=== PATIENT | female | born 1990 | race American Indian/Alaskan Native ===

== ENCOUNTER 2020-08-10 15:08 | Emergency (ER) | payer SELFPAY ==
[2020-08-10] MEDS ORDERED: dexAMETHasone 20 MG/5 ML VIAL IM ONE (15:54)
[2020-08-10] MEDS ORDERED: IPRATROPIUM/ALBUTEROL SULFATE 3 ML AMPUL.NEB IH ONE (15:54)
--- NOTE | 2020-08-10 16:00 | Emergency Department Report ---
ED Shortness of Breath HPI - General Chief Complaint: Dyspnea/Respdistress Stated Complaint: DIFFICULTY BREATHING Time Seen by Provider: 08/10/20 15:33 Source: patient Mode of arrival: Ambulatory Limitations: No Limitations - History of Present Illness Initial Comments: Patient is a 30-year-old female presents emergency room with complaints of an asthma exacerbation that began yesterday. Patient states that she has a cough with mucus production, shortness of breath wheezing patient states that she is visiting from [place]. She states that she ran out of her albuterol inhaler. She states that she has been out approximately 3 days. She denies any fever, nausea, vomiting, diarrhea, chest pain. She states that she also has a past medical history of congestive heart and reports that she is out of her Lasix. She denies any medication allergies. she denies tobacco use. - Related Data Previous Rx's Medication Instructions Recorded Last Taken Type Albuterol Sulfate [Proventil Hfa] 1 - 2 puff IH TID PRN #1 hfa.aer.ad 08/10/20 Unknown Rx Fluticasone/Salmeterol [Advair 1 puff IH BID #1 disk.w.dev 08/10/20 Unknown Rx Diskus 100-50 mcg] Furosemide [Lasix] 40 mg PO BID #60 tablet 08/10/20 Unknown Rx Montelukast [Singulair] 10 mg PO QPM #30 tablet 08/10/20 Unknown Rx Allergies Allergy/AdvReac Type Severity Reaction Status Date / Time clarithromycin [From Biaxin] Allergy Hives Verified 08/10/20 15:21 ED Review of Systems ROS: Stated complaint: DIFFICULTY BREATHING Other details as noted in HPI Comment: All other systems reviewed and negative ED Past Medical Hx - Past Medical History Previous Medical History?: Yes Hx Congestive Heart Failure: Yes Hx Asthma: Yes - Surgical History Past Surgical History?: Yes Additional Surgical History: TL, 2 , GB - Medications Home Medications: Home Medications Medication Instructions Recorded Confirmed Last Taken Type Albuterol Sulfate [Proventil Hfa] 1 - 2 puff IH TID PRN #1 hfa.aer.ad 08/10/20 Unknown Rx Fluticasone/Salmeterol [Advair 1 puff IH BID #1 disk.w.dev 08/10/20 Unknown Rx Diskus 100-50 mcg] Furosemide [Lasix] 40 mg PO BID #60 tablet 08/10/20 Unknown Rx Montelukast [Singulair] 10 mg PO QPM #30 tablet 08/10/20 Unknown Rx ED Physical Exam - General Limitations: No Limitations General appearance: alert, in no apparent distress - Head Head exam: Present: atraumatic, normocephalic - Eye Eye exam: Present: normal appearance - ENT ENT exam: Present: mucous membranes moist - Respiratory Respiratory exam: Present: wheezes, decreased breath sounds. Absent: respiratory distress, rhonchi, stridor, chest wall tenderness, accessory muscle use - Cardiovascular Cardiovascular Exam: Present: regular rate, normal rhythm, normal heart sounds. Absent: systolic murmur, diastolic murmur, rubs, gallop - Extremities Exam Extremities exam: Present: pedal edema (bilaterally, no calf ttp) - Neurological Exam Neurological exam: Present: alert, oriented X3 - Psychiatric Psychiatric exam: Present: normal affect, normal mood - Skin Skin exam: Present: warm, dry, intact ED Course Vital Signs 08/10/20 08/10/20 08/10/20 16:35 16:38 17:18 Temperature 98.5 F Pulse Rate 90 90 Pulse Rate [ 90 Anterior Bilateral Throughout] Respiratory 20 16 Rate Respiratory 18 Rate [Anterior Bilateral Throughout] Blood Pressure 150/95 162/91 [Right] O2 Sat by Pulse 99 97 Oximetry ED Medical Decision Making - Lab Data Vital Signs 08/10/20 08/10/20 08/10/20 16:35 16:38 17:18 Temperature 98.5 F Pulse Rate 90 90 Pulse Rate [ 90 Anterior Bilateral Throughout] Respiratory 20 16 Rate Respiratory 18 Rate [Anterior Bilateral Throughout] Blood Pressure 150/95 162/91 [Right] O2 Sat by Pulse 99 97 Oximetry - Radiology Data Radiology results: report reviewed Ordering Physician: FIDE GARCIA Date of Service: 08/10/20 Procedure(s): XR chest routine 2V Accession Number(s): [id number] cc: FIDE GARCIA Fluoro Time In Minutes: CHEST 2 VIEWS INDICATION: cough, SOB, hx of asthma and CHF. COMPARISON: None FINDINGS: Support devices: None. Heart: Within normal limits. Lungs/pleura: There is poor inspiration. No acute air space or interstitial disease. No pneumothorax. Additional findings: None. IMPRESSION: No acute findings. Signer Name: Corbin Mendosa Jr, MD Signed: 08/10/2020 4:23 PM Workstation Name: [id number] Transcribed By: TTR Dictated By: CORBIN MENDOSA JR, MD Electronically Authenticated By: CORBIN MENDOSA JR, MD Signed Date/Time: 08/10/201622 DD/ 22 TD/TT: Print Cancel - Medical Decision Making Patient is a 30-year-old female presents emergency room with complaints of an as thma exacerbation that began yesterday. Patient states that she has a cough with mucus production, shortness of breath wheezing patient states that she is visiting from [place]. She states that she ran out of her albuterol inhaler. She states that she has been out approximately 3 days. She denies any fever, nausea, vomiting, diarrhea, chest pain. She states that she also has a past medical history of congestive heart and reports that she is out of her Lasix. She denies any medication allergies. she denies tobacco use. Vitals are stable. Chest x-ray No acute findings. Patient given DuoNeb and steroids IM and wheezing has resolved and she feels much better ready to go home. Patient given refill of her home medications. Advised patient Please take medication as prescribed. Follow-up with your primary care doctor. Return to emergency room immediately for any new or worsening symptoms. Critical care attestation.: If time is entered above; I have spent that time in minutes in the direct care of this critically ill patient, excluding procedure time. ED Disposition Clinical Impression: Medication refill Asthma exacerbation Qualifiers: Asthma severity: unspecified severity Asthma persistence: unspecified Qualified Code(s): J45.901 - Unspecified asthma with (acute) exacerbation Disposition: DC-01 TO HOME OR SELFCARE Is pt being admited?: No Does the pt Need Aspirin: No Condition: Stable Instructions: Asthma, Adult Additional Instructions: Please take medication as prescribed. Follow-up with your primary care doctor. Return to emergency room immediately for any new or worsening symptoms. Prescriptions: Fluticasone/Salmeterol [Advair Diskus 100-50 mcg] 1 puff IH BID #1 disk.w.dev Furosemide [Lasix] 40 mg PO BID #60 tablet Albuterol Sulfate [Proventil Hfa] 1 - 2 puff IH TID PRN #1 hfa.aer.ad PRN Reason: shortness of breath/wheezing Montelukast [Singulair] 10 mg PO QPM #30 tablet Referrals: NIMO DE OLIVEIRA MD [Staff Physician] - 3-5 Days [facility] [Provider Group] - 3-5 Days Time of Disposition: 17:09 Print Language: TELUGU
--- NOTE | 2020-08-10 16:28 | XRay Report ---
CHEST 2 VIEWS INDICATION: cough, SOB, hx of asthma and CHF. COMPARISON: None FINDINGS: Support devices: None. Heart: Within normal limits. Lungs/pleura: There is poor inspiration. No acute air space or interstitial disease. No pneumothorax . Additional findings: None. IMPRESSION: No acute findings. Signer Name: Corbin Mendosa Jr, MD Signed: 08/10/2020 4:23 PM Workstation Name: [id number]
[2020-08-10 17:19] VITALS: BP 162/91
== END 2020-08-10 18:30 | disposition home or self-care (01) ==
LOC: ED 15:08
DX: J45.901 Unspecified asthma with (acute) exacerbation (principal); Z76.0 Encounter for issue of repeat prescription; I50.9 Heart failure, unspecified; Z98.890 Other specified postprocedural states; Z79.899 Other long term (current) drug therapy; Z88.8 Allergy status to other drugs, medicaments and biological substances
CPT/HCPCS: 71046; 94640; 96372; 99283; J1100; 94644